=== PATIENT | male | born 1975 | race Two or more races ===

== ENCOUNTER → 2021-01-03 | Outpatient (CLI) | payer BC ==
[~2021-01-03] MED LIST: IOPAMIDOL 76 % (ISOVUE-370) 100ML BTL IV ONE
[2021-01-03 14:25] VITALS: BP 127/76
[2021-01-03 14:50] VITALS: BP 123/73
== END | disposition home or self-care (01) ==
LOC: Rad HDHVI 14:13
PROVIDERS: ATTEND Internal Medicine Cardiovascular Disease
DX: I70.0 Atherosclerosis of aorta (principal); M47.814 Spondylosis without myelopathy or radiculopathy, thoracic region; R06.02 Shortness of breath
CPT/HCPCS: 71275; G0463; Q9967

== ENCOUNTER → 2021-01-12 | Outpatient (CLI) | payer BC | END | disposition home or self-care (01) | LOC: Rad HDHVI 14:17 | PROVIDERS: ATTEND Internal Medicine Cardiovascular Disease | DX: R07.89 Other chest pain (principal); E78.5 Hyperlipidemia, unspecified | CPT/HCPCS: 93306 ==

== ENCOUNTER → 2021-01-26 | Outpatient (CLI) | payer BC | END | disposition home or self-care (01) | LOC: Rad HDHVI 14:05 | PROVIDERS: ATTEND Internal Medicine Cardiovascular Disease | DX: I10 Essential (primary) hypertension (principal); I26.99 Other pulmonary embolism without acute cor pulmonale; R07.89 Other chest pain; E11.42 Type 2 diabetes mellitus with diabetic polyneuropathy; E78.5 Hyperlipidemia, unspecified; Z82.49 Family history of ischemic heart disease and other diseases of the circulatory system | CPT/HCPCS: 78452; 93017; 96374; A9500 ==

== ENCOUNTER 2024-11-12 16:16 | Inpatient (IN) | payer BC ==
[~2024-11-12] VITALS: Ht 167.6 cm; Wt 94.4 kg
--- NOTE | 2024-11-12 16:41 | ED.PDOC ---
GI ASSESSMENT HPI Comments 49 year old male presents to the ED with chief complaint of abdominal pain. Patient reports that he has been experiencing LLQ and RLQ abdominal pain with associated constipation and blood in stools for the past 2 days. Patient relays that 2 days ago, he had underwent a colonoscopy where a large polyp had been removed. Patient states he called the doctor who performed his colonoscopy, Dr. Campbell, today regarding his symptoms and was advised to come into the ED for further evaluation if his symptoms continued. Patient denies any N/V/D, dizziness, fever, chills, hematemesis, melena, or chest pain. Time Seen by MD: 16:37 Reviewed Notes: Nurses Notes, Medications, Allergies Allergies: Coded Allergies: NO KNOWN ALLERGIES (Unverified , 11/12/24) Information Source: Patient Mode of Arrival: Ambulatory Timing: Days Duration: Since onset Prehospital treatment: None Quality: Aching Vomitus: None Stool: Impaction, Blood Streaked Severity: Moderate Recent: None Recent Hx of: None Pain Location: RLQ, LLQ Modifying Factors: Nothing Associated sign and symptoms: Constipation, Abdominal Pain, Blood in Stool Past Medical History PAST MEDICAL HISTORY: Denies Surgical History (Other): Colonoscopy Family History Family History: Reviewed,noncontributory to illness Social History Smoker: Non-Smoker Alcohol: Denies ETOH Use Drugs: Denies Drug Use Lives In: Home Constitutional: denies: chills, diaphoresis, fatigue, fever, malaise, sweats, weakness, others EENTM: denies: blurred vision, double vision, ear bleeding, ear discharge, ear drainage, ear pain, ear ringing, eye pain, eye redness, hearing loss, mouth pain, mouth swelling, nasal discharge, nose bleeding, nose congestion, nose pain, photophobia, tearing, throat pain, throat swelling, voice changes, others Respiratory: denies: cough, hemoptysis, orthopnea, SOB at rest, shortness of breath, SOB with excertion, stridor, wheezing, others Cardiovascular: denies: chest pain, dizzy spells, diaphoresis, Dyspnea on exertion, edema, irregular heart beat, left arm pain, lightheadedness, palpitations, PND, syncope, others Gastrointestinal: reports: abdominal pain, blood streaked bowels, constipated; denies: abdomen distended, diarrhea, dysphagia, difficulty swallowing, hematemesis, melena, nausea, poor appetite, poor fluid intake, rectal bleeding, rectal pain, vomiting, others Genitourinary: denies: burning, dysuria, flank pain, frequency, hematuria, incontinence, penile discharge, penile sore, pain, testicle pain, testicle swelling, urgency, others Neurological: denies: dizziness, fainting, headache, left sided numbness, left sided weakness, numbness, paresthesia, pre-existing deficit, right sided numbness, right sided weakness, seizure, speech problems, tingling, tremors, weakness, others Musculoskeletal: denies: back pain, gout, joint pain, joint swelling, muscle pain, muscle stiffness, neck pain, others Integumetry: denies: bruises, change in color, change in hair/nails, dryness, laceration, lesions, lumps, rash, wounds, others Allergic/Immunocompromised: denies: Difficulty Healing, Frequent Infections, Hives, Itching, others Hematologic/Lymphatic: denies: anemia, blood clots, easy bleeding, easy bruising, swollen glands, others Endocrine: denies: excessive hunger, excessive sweating, excessive thirst, excessive urination, flushing, intolerance to cold, intolerance to heat, unexplained weight gain, unexplained weight loss, others Psychiatric: denies: anxiety, bipolar disorder, depression, hopeless, panic disorder, schizophrenia, sleepless, suicidal, others All Other Systems: Reviewed and Negative Physical Exam General Appearance: No Apparent Distress, Normal HEENT: Normal ENT Inspection, PERRL/EOMI Neck: Full Range of Motion, Non-Tender, Normal, Normal Inspection Respiratory: Chest Non-Tender, Lungs Clear, No Accessory Muscle Use, No Respiratory Distress, Normal Breath Sounds Cardiovascular: No Edema, No JVD, No Murmur, No Gallop, Normal Peripheral Pulses, Regular Rate/Rhythm Breast Exam: Deferred Gastrointestinal: LLQ, No Organomegaly, No Pulsatile Mass, Normal Bowel Sounds, RLQ, Soft, Tenderness (RLQ and LLQ tenderness) Genitalia: Deferred Pelvic: Deferred Rectal: Deferred Extremities: No calf tenderness, Normal capillary refill, Normal inspection, Normal range of motion, Non-tender, No pedal edema Musculoskeletal : Apperance: Normal Neurologic: Alert, purification operator helper II-XII nml as Tested, No Motor Deficits, Normal Affect, Normal Mood, No Sensory Deficits Cerebellar Function: Normal Reflexes: Normal Skin: Dry, Normal Color, Warm Lymphatic: No Adenopathy Was a procedure done? Was a procedure done?: No GI differential Dx Differential Diagnosis: Bowel Obstruction, Cholecystitis, Constipation, Diverticular disease X-Ray, Labs, Meds, VS Vital Signs Date Time Temp Pulse Resp B/P (MAP) Pulse Ox O2 Delivery O2 Flow Rate FiO2 11/12/24 18:02 96 17 100 Room Air 11/12/24 18:02 98.5 96 17 164/80 (108) 100 98.5 11/12/24 16:42 98.1 95 16 125/83 (97) 97 Lab Test 11/12/24 17:48 11/12/24 17:46 Range/Units Urine Color Light-yellow Yellow Urine Clarity Clear Clear Urine pH 6.5 5.0-9.0 Urine Specific [place] 1.019 1.001-1.035 Urine Protein Negative Negative Urine Ketones Negative Negative Urine Blood 1+ H Negative /uL Urine Nitrite Negative Negative Urine Bilirubin Negative Negative Urine Urobilinogen Normal Negative mg/dL Urine Leukocyte Esterase Negative Negative /uL Urine RBC 9 0 - 3 /hpf Urine Microscopic WBC < 1 0-3 /HPF Urine Squamous Epithelial Cells None seen <5 /hpf Urine Bacteria None seen None Seen /hpf Urine Mucus Few None Seen Urine Glucose Normal Normal mg/dL White Blood Count 10.7 4.4-10.8 10^3/uL Red Blood Count 4.72 4.5-5.90 10^6/uL Hemoglobin 13.6 13.5-17.5 g/dL Hematocrit 40.3 L 41.0-53.0 % Mean Corpuscular Volume 85.4 80.0-100.0 fL Mean Corpuscular Hemoglobin 28.8 28.0-32.0 pg Mean Corpuscular Hemoglobin Concent 33.8 32.0-36.0 g/dL Red Cell Distribution Width 18.6 H 11.8-14.3 % Platelet Count 207 140-450 10^3/uL Mean Platelet Volume 8.6 6.9-10.8 fL Neutrophils (%) (Auto) 85.3 H 37.0-80.0 % Lymphocytes (%) (Auto) 8.8 L 10.0-50.0 % Monocytes (%) (Auto) 5.3 0.0-12.0 % Eosinophils (%) (Auto) 0.0 0.0-7.0 % Basophils (%) (Auto) 0.6 0.0-2.0 % Neutrophils # (Auto) 9.1 H 1.6-8.6 10 ^3/uL Lymphocytes # (Auto) 0.9 0.4-5.4 10 ^3/uL Monocytes # (Auto) 0.6 0-1.3 10 ^3/uL Eosinophils # (Auto) 0 0-0.8 10 ^3/uL Basophils # (Auto) 0.1 0-0.2 10 ^3/uL Nucleated Red Blood Cells 0.0 % Sodium Level 138 136-145 mmol/L Potassium Level 3.7 3.5-5.1 mmol/L Chloride Level 102 98-107 mmol/L Carbon Dioxide Level 28 20-31 mmol/L Anion Gap 8 5-15 Blood Urea Nitrogen 11 9-23 mg/dL Creatinine 0.90 0.700-1.30 mg/dL Glomerular Filtration Rate Calc 105 >90 mL/min BUN/Creatinine Ratio 12.2 10.0-20.0 Serum Glucose 103 74-106 mg/dL Calcium Level 9.9 8.7-10.4 mg/dL Total Bilirubin 0.8 0.2-1.0 mg/dL Aspartate Amino Transferase (AST) 23 13-40 U/L Alanine Aminotransferase (ALT) 46 H 7-40 U/L Alkaline Phosphatase 74 46-116 U/L Total Protein 7.2 5.7-8.2 g/dL Albumin 5.1 H 3.2-4.8 g/dL Current Medications Medications (Trade) Dose Ordered Sig/Wyatt Route Start Time Stop Time Status Last Admin Piperacillin Sod/ Tazobactam Sod 100 ml @ 100 mls/hr ONCE ONCE IV 11/12/24 18:00 11/12/24 18:59 11/12/24 18:14 Ketorolac Tromethamine (Toradol Injection) 30 mg ONCE ONCE IV 11/12/24 18:00 11/12/24 18:01 DC 11/12/24 18:14 X-Ray, Labs, Meds, VS Comment CT abdomen and pelvis: IMPRESSION: 1. Acute complicated diverticulitis of the mid sigmoid colon with a small extraluminal tract /pocket of gas and fluid adjacent to the inflamed segment coursing to an adjacent small bowel loop. This could be a small abscess, though developing fistulous tract is a possibility 2. At least mild calcified coronary artery disease partially imaged. 3. Mild prostatomegaly. Patient will be admitted for complicated diverticulitis To be started on Zosyn Recommend GI consult Time of 1ST Reevaluation: 17:37 Reevaluation 1ST: Unchanged Patient Education/Counseling: Diagnosis, Treatment Family Education/Counseling: No Family Present Departure 1 Departure Time of Disposition: 18:46 Impression: Primary Impression: Diverticulitis of intestine Qualified Codes: K57.21 - Diverticulitis of large intestine with perforation and abscess with bleeding Disposition: ADMITTED INPATIENT Condition: Stable Critical Care Note Critical Care Time?: No Stability Stability form required: No Heart Score Heart Score: Heart Score Response (Comments) Value History N/A 0 EKG N/A 0 Age N/A 0 Risk Factors N/A 0 Troponin N/A 0 Total 0 I personally scribed for SEBAS BA ([email or web address]) on 11/12/24 at 16:41. Electronically submitted by Demian Dash ([email or web address]). SEBAS BA Nov 12, 2024 16:41
--- NOTE | 2024-11-12 17:27 | DVH ---
CLINICAL HISTORY: abd pain TECHNIQUE: CT of the abdomen and pelvis was performed without intravenous contrast. This exam was per formed according to our departmental dose optimization program. Up-to-date CT equipment and radiation dose reduction techniques are utilized as appropriate. [[employer] Exposure Report] CTDI: 20.25 DLP: 1064.7 WID: COMPARISON: None FINDINGS: Lower Thorax: Normal-sized heart with trace pericardial fluid. At least mild coronary artery calcific ations. Lung bases are clear. Liver and Biliary system: Unremarkable. Spleen: Unremarkable. Adrenal Glands and Kidneys: Unremarkable. Pancreas and Retroperitoneum: Unremarkable. Aorta and Major Vessels: Aortoiliac vessels are normal in caliber with mild calcified atherosclerotic plaque. Bowel, Mesentery and Peritoneal space: The small and large bowel loops are normal in caliber. There i s a segment of pericolonic soft tissue stranding in the mid sigmoid colon. There is a tract of extra luminal gas and fluid from the anterior/ superior mid sigmoid colon, contiguous with an adjacent smal l bowel loop ( series 601, image 35 and series 2, image 66 ). Normal appendix. No generalized free in traperitoneal air Pelvis: Mild prostatomegaly. Urinary bladder is mildly distended. There is calcification of the bila teral vas deferens. No pelvic lymphadenopathy. Abdominal wall and Osseous Structures: Small fat containing left inguinal hernia. Mild multilevel low er thoracic and lumbar spondylosis. No destructive osseous lesion. IMPRESSION: 1. Acute complicated diverticulitis of the mid sigmoid colon with a small extraluminal tract /pocket of gas and fluid adjacent to the inflamed segment coursing to an adjacent small bowel loop. This cou ld be a small abscess, though developing fistulous tract is a possibility 2. At least mild calcified coronary artery disease partially imaged. 3. Mild prostatomegaly.
[2024-11-12 17:59] LABS: Basophils # (auto) 0.1 10 ^3/uL (0-0.2); Basophils % (auto) 0.6 % (0.0-2.0); Eosinophils # (auto) 0 10 ^3/uL (0-0.8); Hematocrit 40.3 % (41.0-53.0); Hemoglobin 13.6 g/dL (13.5-17.5); Lymphocytes # (auto) 0.9 10 ^3/uL (0.4-5.4); Lymphocytes % (auto) 8.8 % (10.0-50.0); Mean Corpuscular Hemoglobin 28.8 pg (28.0-32.0); Mean Corpuscular Hgb Conc. 33.8 g/dL (32.0-36.0); Mean Corpuscular Volume 85.4 fL (80.0-100.0); Monocytes # (auto) 0.6 10 ^3/uL (0-1.3); Monocytes % (auto) 5.3 % (0.0-12.0); Neutrophils # (auto) 9.1 10 ^3/uL (1.6-8.6); Neutrophils % (auto) 85.3 % (37.0-80.0); Platelet Count (auto) 207 10^3/uL (140-450); Red Blood Cells 4.72 10^6/uL (4.5-5.90); Red Cell Distribution Width 18.6 % (11.8-14.3); White Blood Cell 10.7 10^3/uL (4.4-10.8)
[2024-11-12 18:08] LABS: Urine Bacteria None Seen /hpf (None Seen)
[2024-11-12] MEDS: KETOROLAC TROMETH 30 MG/ML 1ML VIAL IV ONE (18:14)
[2024-11-12] MEDS: PIPERACILLIN-TAZOB 3.375GM 100 ML IV ONE (18:14)
[2024-11-12 18:15] LABS: Alkaline Phosphatase 74 U/L (46-116); Anion Gap 8 (5-15); Aspartate Aminotransferase 23 U/L (13-40); BUN/Creatinine Ratio 12.2 (10.0-20.0); Bilirubin, Total 0.8 mg/dL (0.2-1.0); Blood Urea Nitrogen 11 mg/dL (9-23); Calcium 9.9 mg/dL (8.7-10.4); Carbon Dioxide 28 mmol/L (20-31); Chloride 102 mmol/L (98-107); Glucose 103 mg/dL (74-106); Potassium 3.7 mmol/L (3.5-5.1); Sodium 138 mmol/L (136-145); Total Protein 7.2 g/dL (5.7-8.2)
[2024-11-12 18:32] LABS: Urine Blood 1+ /uL (Negative); Urine Clarity Clear (Clear); Urine Color Light-Yellow (Yellow); Urine Mucus FEW (None Seen); Urine Protein, UAD Negative (Negative); Urine Specific Gravity 1.019 (1.001-1.035); Urine Squamous Epithelial Cell None Seen /hpf (<5); Urine Urobilinogen Normal (Negative); Urine WBC < 1 /HPF (0-3); Urine pH 6.5 (5.0-9.0)
[2024-11-12 18:33] LABS: Alanine Aminotransferase 46 U/L (7-40); Albumin 5.1 g/dL (3.2-4.8)
[2024-11-12] MEDS ORDERED: ACETAMINOPHEN 325 MG TAB PO PRN (22:30)
[2024-11-12] MEDS: SODIUM CHLORIDE 0.9% 1,000 ML IV SCH (22:30)
[2024-11-12 22:55] VITALS: O2SAT 95
--- NOTE | 2024-11-12 23:19 | DVHHPRES ---
History of Present Illness Resident Creating Document: HOLLIE MERAZ RESIDENT History of Present Illness Is a 49-year-old male with past medical history of diverticulosis, prediabetes, dyslipidemia, who came in due to abdominal pain. According to the patient he underwent a colonoscopy on 11/10/2024 with the removal of a sigmoid polyp. Today on 11/12/2024 in the morning he started experiencing a generalized abdominal pain, constant, sharp, cramping, 9/10 in intensity. Bending over relieves the pain slightly. Denies having similar symptoms in the past. Abdominal pain is accompanied with diarrhea and hematochezia. CT abdomen pelvis showed acute complicated diverticulitis of the midsigmoid colon with a small extraluminal tract/pocket of gas and fluid adjacent to the inflamed segment coursing to an adjacent small bowel loop. This could be a small abscess, though developing fistulous track is a possibility. Past Medical History diverticulosis, prediabetes, dyslipidemia Past Surgical History Hernia repair surgery Smoke: No ALCOHOL: none Drugs: Marijuana Lives: with Family Review of Systems Constitutional: Yes: Fever, Chills, Malaise; No: Sweats, Weakness, Other Eyes: No: Pain, Vision change, Conjunctivae inflammation, Eyelid inflammation, Other, Redness ENT: No: Ear pain, Ear discharge, Nose pain, Nose discharge, Nose congestion, Mouth pain, Mouth swelling, Throat pain, Throat swelling, Other Respiratory: No: Cough, Dry, Shortness of breath, SOB with excertion, Wheezing, Hemoptysis, Pleuritic Pain, Sputum, Wheezing, Other Gastrointestinal: Nausea, Vomiting, Diarrhea, Hematochezia; No: Abdominal Pain, Constipation, Melena, Other Genitourinary: No Dysuria, No Frequency, No Incontinence, No Hematuria, No Retention, No Other Musculoskeletal: No: other, neck pain, shoulder pain, arm pain, back pain, hand pain, leg pain, foot pain Skin: No: Rash, Lesions, Jaundice, Bruising, Other Neurological: No: Weakness, Numbness, Incoordination, Change in speech, Confusion, Seizures, Other Allergies: Coded Allergies: NO KNOWN ALLERGIES (Unverified , 11/12/24) Medications Current Medications Medications Dose Ordered Sig/Wyatt Route Start Time Stop Time Status Last Admin Dose Admin Acetaminophen 650 mg Q6HP PRN PO 11/12/24 22:30 Ceftriaxone Sodium 50 ml @ 100 mls/hr DAILY@2300 IV 11/13/24 23:00 Metronidazole 100 ml @ 100 mls/hr Q8HR IV 11/13/24 06:00 Sodium Chloride 1,000 ml @ 125 mls/hr Q8H IV 11/12/24 22:30 Pantoprazole Sodium 40 mg DAILY IV 11/13/24 10:00 Exam Vital Signs Vital Signs Date Time Temp Pulse Resp B/P (MAP) Pulse Ox O2 Delivery O2 Flow Rate FiO2 11/12/24 22:59 98.7 98 12 141/83 (102) 98 98.7 11/12/24 18:02 Room Air General Appearance: Alert, Oriented X3, Cooperative, mild distress HEENT: Atraumatic, PERRLA, EOMI Respiratory: Clear to auscultation, Normal air movement Cardiovascular: Regular rate, Normal S1, Normal S2 Abdominal: Other (Slightly decreased bowel sounds, generalized lower abdominal tenderness to palpation) Extremities: No clubbing, No cyanosis, No edema Skin: No rashes, No significant lesion Neuro: Normal speech, Strength at 5/5 X4 ext, Sensation intact Psych/Mental Status: Mental status NL, Mood NL Labs/Xrays Labs Test 11/12/24 17:48 11/12/24 17:46 Range/Units Urine Color Light-yellow Yellow Urine Clarity Clear Clear Urine pH 6.5 5.0-9.0 Urine Specific [place] 1.019 1.001-1.035 Urine Protein Negative Negative Urine Ketones Negative Negative Urine Blood 1+ H Negative /uL Urine Nitrite Negative Negative Urine Bilirubin Negative Negative Urine Urobilinogen Normal Negative mg/dL Urine Leukocyte Esterase Negative Negative /uL Urine RBC 9 0 - 3 /hpf Urine Microscopic WBC < 1 0-3 /HPF Urine Squamous Epithelial Cells None seen <5 /hpf Urine Bacteria None seen None Seen /hpf Urine Mucus Few None Seen Urine Glucose Normal Normal mg/dL White Blood Count 10.7 4.4-10.8 10^3/uL Red Blood Count 4.72 4.5-5.90 10^6/uL Hemoglobin 13.6 13.5-17.5 g/dL Hematocrit 40.3 L 41.0-53.0 % Mean Corpuscular Volume 85.4 80.0-100.0 fL Mean Corpuscular Hemoglobin 28.8 28.0-32.0 pg Mean Corpuscular Hemoglobin Concent 33.8 32.0-36.0 g/dL Red Cell Distribution Width 18.6 H 11.8-14.3 % Platelet Count 207 140-450 10^3/uL Mean Platelet Volume 8.6 6.9-10.8 fL Neutrophils (%) (Auto) 85.3 H 37.0-80.0 % Lymphocytes (%) (Auto) 8.8 L 10.0-50.0 % Monocytes (%) (Auto) 5.3 0.0-12.0 % Eosinophils (%) (Auto) 0.0 0.0-7.0 % Basophils (%) (Auto) 0.6 0.0-2.0 % Neutrophils # (Auto) 9.1 H 1.6-8.6 10 ^3/uL Lymphocytes # (Auto) 0.9 0.4-5.4 10 ^3/uL Monocytes # (Auto) 0.6 0-1.3 10 ^3/uL Eosinophils # (Auto) 0 0-0.8 10 ^3/uL Basophils # (Auto) 0.1 0-0.2 10 ^3/uL Nucleated Red Blood Cells 0.0 % Sodium Level 138 136-145 mmol/L Potassium Level 3.7 3.5-5.1 mmol/L Chloride Level 102 98-107 mmol/L Carbon Dioxide Level 28 20-31 mmol/L Anion Gap 8 5-15 Blood Urea Nitrogen 11 9-23 mg/dL Creatinine 0.90 0.700-1.30 mg/dL Glomerular Filtration Rate Calc 105 >90 mL/min BUN/Creatinine Ratio 12.2 10.0-20.0 Serum Glucose 103 74-106 mg/dL Calcium Level 9.9 8.7-10.4 mg/dL Total Bilirubin 0.8 0.2-1.0 mg/dL Aspartate Amino Transferase (AST) 23 13-40 U/L Alanine Aminotransferase (ALT) 46 H 7-40 U/L Alkaline Phosphatase 74 46-116 U/L Total Protein 7.2 5.7-8.2 g/dL Albumin 5.1 H 3.2-4.8 g/dL Assessment/Plan Assessment/Plan Acute complicated diverticulitis Questionable abscess vs colonic fistulous tract? Hemorrhoids, 4th degree - s/p colonoscopy on 11/10/24 which showed polyp of the colon, diverticulosis of intestine without perforation or abscess without bleeding, 4th degree hemorrhoids - CT abdomen pelvis: Acute complicated diverticulitis of the mid sigmoid colon with a small extraluminal tract /pocket of gas and fluid adjacent to the inflamed segment coursing to an adjacent small bowel loop. This could be a small abscess, though developing fistulous tract is a possibility. At least mild calcified coronary artery disease partially imaged. Mild prostatomegaly. - IV ceftriaxone, IV metronidazole - IV NS at 125 cc/hour - acetaminophen 650 mg as needed - NPO - GI gastro group consulted - surgery consulted History of GERD History of BPH - IV Protonix 40 mg daily - currently holding home medication tamsulosin Prediabetes, Hb A1c 6% - counseled on healthy lifestyle and dietary modifications - monitor Goals of care: Full code, discussed for >16 minutes on 11/12/24 Plan discussed with patient Plan discussed with Dr. Singh Plan discussed with: Patient, Other (RN) My Orders Orders - HOLLIE MERAZ RESIDENT Procedure Category Date Status Time Admit ADMIT 11/12/24 Transmitted 22:29 Code Status CODE 11/12/24 Transmitted 22:29 Vital Signs EMILY 11/12/24 In Process 22:29 Review Orders With EMILY 11/12/24 In Process Adm.Md 22:29 Acetaminophen Tablet PHA 11/12/24 In Process (Tylenol Tablet) 22:30 Notify Md Of Changes EMILY 11/12/24 In Process From Base 22:29 Advance Directive EMILY 11/12/24 In Process 22:29 Patient Condition ORDERS 11/12/24 Transmitted 22:29 Allergies EMILY 11/12/24 In Process 22:29 Notify Md Of Changes EMILY 11/12/24 In Process From Base 22:29 Npo (Nothing By DIET 11/13/24 Transmitted Mouth) Diet Breakfast *Gi Gastro Group CONS 11/12/24 Transmitted 22:24 * Surgical Consult CONS 11/12/24 Transmitted Ceftriaxone 1gm/50ml PHA 11/13/24 In Process D5w (Rocephin) 23:00 Metronidazole PHA 11/13/24 In Process 500mg/100ml (Flagyl 06:00 Metronidazole PHA 11/12/24 In Process 500mg/100ml (Flagyl 22:30 Sodium Chloride 0.9% PHA 11/12/24 In Process 22:30 Pantoprazole PHA 11/13/24 In Process (Protonix) 10:00 Date of Service: Nov 12, 2024 Billing Provider: STEPHANIE SINGH MD Common Visit Codes: 89998-[id number] INP/OBS CARE (HIGH) [facility] Nov 12, 2024 23:19 STEPHANIE SINGH MD Nov 13, 2024 23:13
[2024-11-12] MEDS: cefTRIAXone 1GM/50ML D5W 50 ML IV ONE (23:24)
[2024-11-13] MEDS: metroNIDAZOLE 500MG/100ML 100 ML IV ONE (00:37)
[2024-11-13 01:00] VITALS: BP 120/80; PULSE 91; RESP 20; TEMP 98.8; O2SAT 98
[2024-11-13] MEDS: metroNIDAZOLE 500MG/100ML 100 ML IV SCH (05:29)
[2024-11-13 07:24] LABS: Basophils # (auto) 0 10 ^3/uL (0-0.2); Basophils % (auto) 0.2 % (0.0-2.0); Eosinophils # (auto) 0 10 ^3/uL (0-0.8); Eosinophils % (auto) 0.3 % (0.0-7.0); Hematocrit 36.5 % (41.0-53.0); Hemoglobin 12.3 g/dL (13.5-17.5); Lymphocytes # (auto) 0.9 10 ^3/uL (0.4-5.4); Lymphocytes % (auto) 10.1 % (10.0-50.0); Mean Corpuscular Hemoglobin 28.6 pg (28.0-32.0); Mean Corpuscular Hgb Conc. 33.7 g/dL (32.0-36.0); Mean Corpuscular Volume 84.9 fL (80.0-100.0); Monocytes # (auto) 0.6 10 ^3/uL (0-1.3); Monocytes % (auto) 6.3 % (0.0-12.0); Neutrophils # (auto) 7.4 10 ^3/uL (1.6-8.6); Neutrophils % (auto) 83.1 % (37.0-80.0); Platelet Count (auto) 196 10^3/uL (140-450); Red Cell Distribution Width 18.4 % (11.8-14.3); White Blood Cell 8.9 10^3/uL (4.4-10.8)
[2024-11-13 08:45] VITALS: BP 115/76; PULSE 86; RESP 20; TEMP 98.4; O2SAT 97
[2024-11-13] MEDS: ACETAMINOPHEN IV 1000 MG/100ML (10MG/ML) IV ONE (08:48)
[2024-11-13] MEDS: PANTOPRAZOLE 40 MG/10 ML VIAL INJ IV SCH (08:50)
[2024-11-13] MEDS: MORPHINE SULFATE INJ 2 MG/ml SYRG IV PRN (11:26)
--- NOTE | 2024-11-13 12:13 | DVHINCON2 ---
Date of service: Nov 13, 2024 History of Present Illness 49-year-old male status post colonoscopy three days ago who began to experience suprapubic abdominal pain starting yesterday. Patient reports that he was told that a large polyp was removed during the colonoscopy. Patient reports some low-grade fever with without nausea or vomiting. Past Medical History Hypercholesterolemia Past Surgical History Ventral hernia repair and left inguinal hernia repair Family History: Hypercholesterolemia G8 FATHER Family History Noncontributory Social History Denies alcohol, tobacco, IV drug use Allergies: Coded Allergies: NO KNOWN ALLERGIES (Unverified , 11/12/24) Current Medications Current Medications Medications (Trade) Dose Ordered Sig/Wyatt Route PRN Reason Start Time Stop Time Status Last Admin Acetaminophen (Tylenol Tablet) 650 mg Q6HP PRN PO PAIN SCALE 1-3 OR TEMP>100.4 11/12/24 22:30 11/13/24 08:06 DC Ceftriaxone Sodium 50 ml @ 100 mls/hr DAILY@2300 IV 11/13/24 23:00 Metronidazole 100 ml @ 100 mls/hr Q8HR IV 11/13/24 06:00 11/13/24 05:29 Sodium Chloride 1,000 ml @ 125 mls/hr Q8H IV 11/12/24 22:30 11/13/24 10:13 Pantoprazole Sodium (Protonix) 40 mg DAILY IV 11/13/24 10:00 11/13/24 08:50 Morphine Sulfate 2 mg Q4HPRN PRN IV SEVERE PAIN (7-10 PAIN SCALE) 11/13/24 11:00 11/13/24 11:26 Vital Signs Vital Signs Date Time Temp Pulse Resp B/P (MAP) Pulse Ox O2 Delivery O2 Flow Rate FiO2 11/13/24 11:26 80 18 125/78 11/13/24 08:45 98.4 97 98.4 11/13/24 08:00 Room Air* 0 21 Physical Exam GEN: Well-developed male in no acute distress. Alert. HEENT: Normocephalic atraumatic. Moist mucous membranes. Anicteric sclerae. CV: RRR Respiratory: CTAB ABD: Slightly obese abdomen with suprapubic tenderness to palpation with minimal guarding. Nondistended. CT of the abdomen and pelvis: Acute complicated diverticulitis of the mid sigmoid colon with small extraluminal pocket of gas and fluid adjacent to the inflamed segment. Labs/Diagnostic Data Labs Test 11/13/24 08:13 11/13/24 06:54 11/12/24 17:48 11/12/24 17:46 Range/Units Lactic Acid Level 0.9 0.4-2.0 mmol/L White Blood Count 8.9 4.4-10.8 10^3/uL Red Blood Count 4.30 L 4.5-5.90 10^6/uL Hemoglobin 12.3 L 13.5-17.5 g/dL Hematocrit 36.5 L 41.0-53.0 % Mean Corpuscular Volume 84.9 80.0-100.0 fL Mean Corpuscular Hemoglobin 28.6 28.0-32.0 pg Mean Corpuscular Hemoglobin Concent 33.7 32.0-36.0 g/dL Red Cell Distribution Width 18.4 H 11.8-14.3 % Platelet Count 196 140-450 10^3/uL Mean Platelet Volume 8.2 6.9-10.8 fL Neutrophils (%) (Auto) 83.1 H 37.0-80.0 % Lymphocytes (%) (Auto) 10.1 10.0-50.0 % Monocytes (%) (Auto) 6.3 0.0-12.0 % Eosinophils (%) (Auto) 0.3 0.0-7.0 % Basophils (%) (Auto) 0.2 0.0-2.0 % Neutrophils # (Auto) 7.4 1.6-8.6 10 ^3/uL Lymphocytes # (Auto) 0.9 0.4-5.4 10 ^3/uL Monocytes # (Auto) 0.6 0-1.3 10 ^3/uL Eosinophils # (Auto) 0 0-0.8 10 ^3/uL Basophils # (Auto) 0 0-0.2 10 ^3/uL Nucleated Red Blood Cells 0.0 % Urine Color Light-yellow Yellow Urine Clarity Clear Clear Urine pH 6.5 5.0-9.0 Urine Specific [place] 1.019 1.001-1.035 Urine Protein Negative Negative Urine Ketones Negative Negative Urine Blood 1+ H Negative /uL Urine Nitrite Negative Negative Urine Bilirubin Negative Negative Urine Urobilinogen Normal Negative mg/dL Urine Leukocyte Esterase Negative Negative /uL Urine RBC 9 0 - 3 /hpf Urine Microscopic WBC < 1 0-3 /HPF Urine Squamous Epithelial Cells None seen <5 /hpf Urine Bacteria None seen None Seen /hpf Urine Mucus Few None Seen Urine Glucose Normal Normal mg/dL Sodium Level 138 136-145 mmol/L Potassium Level 3.7 3.5-5.1 mmol/L Chloride Level 102 98-107 mmol/L Carbon Dioxide Level 28 20-31 mmol/L Anion Gap 8 5-15 Blood Urea Nitrogen 11 9-23 mg/dL Creatinine 0.90 0.700-1.30 mg/dL Glomerular Filtration Rate Calc 105 >90 mL/min BUN/Creatinine Ratio 12.2 10.0-20.0 Serum Glucose 103 74-106 mg/dL Hemoglobin A1c 6.0 H <5.7 % A1C Calcium Level 9.9 8.7-10.4 mg/dL Total Bilirubin 0.8 0.2-1.0 mg/dL Aspartate Amino Transferase (AST) 23 13-40 U/L Alanine Aminotransferase (ALT) 46 H 7-40 U/L Alkaline Phosphatase 74 46-116 U/L Total Protein 7.2 5.7-8.2 g/dL Albumin 5.1 H 3.2-4.8 g/dL Assessment 1. Small colonic perforation secondary to diverticulitis versus iatrogenic from colonoscopy clinically stable Plan/Recommendation 1. Patient is clinically stable. Recommend continuing with conservative treatment with NPO status and in broad-spectrum IV antibiotics. If he is stable tomorrow we will consider possible starting clear liquid diet. Plan discussed with: Patient KASSANDRA BUNDY MD Nov 13, 2024 12:13
[2024-11-13 12:30] VITALS: BP 125/78; PULSE 80; RESP 20; TEMP 98; O2SAT 97
[2024-11-13 16:30] VITALS: BP 129/75; PULSE 89; RESP 19; TEMP 98.9; O2SAT 96
--- NOTE | 2024-11-13 18:04 | DVHPNRES ---
Progress Note Date Seen: Nov 13, 2024 Resident Creating Document: ALFONSO AGUILAR Medical Necessity Reason Pt with a Central, PICC or Fol: No Medical Necessity Reason Abdominal pain Subjective Review of Systems This is a 49-year-old male with past medical history of diverticulosis, prediabetes, dyslipidemia, who came in due to abdominal pain. According to the patient he underwent a colonoscopy on 11/10/2024 with the removal of a sigmoid polyp. On 11/12/2024 in the morning, he started experiencing a generalized abdominal pain, constant, sharp, cramping, 9/10 in intensity. Bending over relieves the pain slightly. Denies having similar symptoms in the past. Abdominal pain is accompanied with diarrhea and hematochezia. He denies chest pain, palpitations, nausea and vomiting. vitals temperature 98.7 pulse 98, respiratory 12 blood pressure 141/13. WBC10.7--> 8.9, hb: 13.60--> 12.3. CT abdomen pelvis showed acute complicated diverticulitis of the midsigmoid colon with a small extraluminal tract/pocket of gas and fluid adjacent to the inflamed segment coursing to an adjacent small bowel loop. This could be a small abscess, though developing fistulous track is a possibility. Constitutional: Denies fever no chills no feeling of malaise HEENT: Denies headache, ear pain, ear discharges, conjunctivitis, nasal discharge throat pain Cardiovascular: Denies chest pain, palpitation, orthopnea, PND, or pedal edema Respiratory: Denies shortness of breath, cough cough, sputum production, hemoptysis, GI: As stated in the HPI : Denies frequency, urgency, hematuria, Endocrine: Denies unintentional weight gain or weight loss, feeling of hot flashes, Bam: Denies easy bruising, bleeding disorders, epistaxis Musculoskeletal: Denies joint pains, muscle aches Psych: No evidence of depression, raiza, suicidal ideation Objective vital signs Vital Sign Date Time Temp Pulse Resp B/P (MAP) Pulse Ox O2 Delivery O2 Flow Rate FiO2 11/13/24 17:09 89 18 129/75 11/13/24 16:30 98.9 96 98.9 11/13/24 08:00 Room Air* 0 21 Total Intake and Output 11/12/24 11/12/24 11/13/24 15:00 23:00 07:00 Intake Total 100 ml Balance 100 ml medications Current Medications Medications Dose Ordered Sig/Wyatt Route Start Time Stop Time Status Last Admin Dose Admin Ceftriaxone Sodium 50 ml @ 100 mls/hr DAILY@2300 IV 11/13/24 23:00 Metronidazole 100 ml @ 100 mls/hr Q8HR IV 11/13/24 06:00 11/13/24 14:24 100 MLS/HR Sodium Chloride 1,000 ml @ 125 mls/hr Q8H IV 11/12/24 22:30 11/13/24 10:13 125 MLS/HR Pantoprazole Sodium 40 mg DAILY IV 11/13/24 10:00 11/13/24 08:50 40 MG Morphine Sulfate 2 mg Q4HPRN PRN IV 11/13/24 11:00 11/13/24 17:09 2 MG Examination General Appearance: Alert, Oriented X3, Cooperative, No acute distress HEENT: Atraumatic, PERRLA, EOMI, Mucous membrane moist/pink Respiratory: Clear to auscultation, Normal air movement Cardiovascular: Regular rate, Normal S1, Normal S2, No murmurs, no chest wall tenderness Abdominal: Tenderness in the lower quadrant, but L> R, bowel sounds present, Extremities: No clubbing, No cyanosis, No edema, Normal pulses, No tenderness/swelling Skin: No rashes, No breakdown, No significant lesion Neuro: Normal gait, Normal speech, Strength at 5/5 X4 ext, Normal tone, Sensation intact, Cranial nerves 3-12 NL, Reflexes 2+ Psych/Mental Status: Mental status NL, Mood NL laboratory and microbiology Laboratory Tests 11/13/24 06:54 11/12/24 17:46 Test 11/12/24 17:46 Range/Units Serum Glucose 103 74-106 mg/dL Problem List/Assessment/Plan Problem List/Assessment/Plan ASSESSMENT Acute complicated Diverticulitis Questionable abscess vs colonic fistulous tract? Diverticulosis Obesity Prediabetes, Hb A1c 6% Recent history of colonoscopy BPH (Mild prostatomegaly) Hemorrhoids, 4th degree S/p colonoscopy on 11/10/24 which showed polyp of the colon, diverticulosis of intestine without perforation or abscess without bleeding, 4th degree hemorrhoids History of GERD Plan Patient is clinically stable. Keep NPO Continue IV antibiotics: IV ceftriaxone, IV metronidazole IV NS at 125 cc/hour morphine 2 mg q4hr prn protonix 40 mg daily Surgery following Closed status: Full code Case discussed for more than 35 minute Case and plan discussed and reviewed with Dr. Brady Plan discussed with: Patient, Other (family) Date of Service: Nov 13, 2024 Billing Provider: JUWAN BRADY MD Common Visit Codes: [id number] INP/OBS CARE(HIGH) ALFONSO AGUILAR RESIDENT Nov 13, 2024 18:04 JUWAN BRADY MD Nov 18, 2024 20:38
--- NOTE | 2024-11-13 18:18 | DVHINCON2 ---
GI Consult Consult Note Date of Consultation: November 13, 2024 Chief Complaint: Abnormal imaging colon, diverticulitis versus iatrogenic perforation Referring Physician: Elena H&P: The patient is a 49-year-old male recent colonoscopy November 10, admitted November 12 with abdominal pain, with history of sigmoid polypectomy polypectomy, admitted with abdominal pain, findings suspicious for diverticulitis versus iatrogenic perforation from the procedure. Patient placed on IV antibiotics. Currently NPO. Patient complains of bloating and abdominal pain, denies fevers or chills, is not passing gas or stool. Patient is currently NPO. He has no prior history of diverticulitis. Past Medical History: Hyperlipidemia Past Surgical History: Ventral hernia repair Social History: NO smoking, drinking ETOH and use of illegal drugs. Family History: No gastrointestinal diseases or malignancies Current Medications Medications (Trade) Dose Ordered Sig/Wyatt Route PRN Reason Start Time Stop Time Status Last Admin Acetaminophen (Tylenol Tablet) 650 mg Q6HP PRN PO PAIN SCALE 1-3 OR TEMP>100.4 11/12/24 22:30 11/13/24 08:06 DC Ceftriaxone Sodium 50 ml @ 100 mls/hr DAILY@2300 IV 11/13/24 23:00 Metronidazole 100 ml @ 100 mls/hr Q8HR IV 11/13/24 06:00 11/13/24 14:24 Sodium Chloride 1,000 ml @ 125 mls/hr Q8H IV 11/12/24 22:30 11/13/24 10:13 Pantoprazole Sodium (Protonix) 40 mg DAILY IV 11/13/24 10:00 11/13/24 08:50 Morphine Sulfate 2 mg Q4HPRN PRN IV SEVERE PAIN (7-10 PAIN SCALE) 11/13/24 11:00 11/13/24 17:09 Review of Systems: Constitutional: no fever, chill, weight loss HEENT: no eye pain, no hearing loss, no oral lesion, no scleral icterus Heart: no chest pain, no chest pressure Lung: no cough, no dyspnea with exertion Abdomen: see HPI : no pain with urination, normal appearing urine Musculoskeletal: no joint pain, no muscle pain Neurological: no seizure, no loss of sensation, no weakness in extremities Pysch: no depression, no anxiety Derm: no rash, no jaundice Vital Signs Date Time Temp Pulse Resp B/P (MAP) Pulse Ox O2 Delivery O2 Flow Rate FiO2 11/13/24 17:39 84 16 114/66 11/13/24 16:30 98.9 96 98.9 11/13/24 08:00 Room Air* 0 21 Physical exam: General: NAD, AAOX3 HEENT: PERRL, no scleral icterus, normal hearing, gums without lesions or bleeding, oropharynx clear without erythema or exudate. Neck: Supple without enlargement of the thyroid, or lymphadenopathy. Chest: Normal size and shape, no tenderness, lung vaughn clear to auscultation and percussion, nonlabored breathing. Heart: RRR, no murmur Abdomen: non-distended, no tenderness to palpation, +BS, no hepatosplenomegaly Extremities: no edema, no cyanosis Neurological: CN II-XII intact, sensation intact in all extremities, 5+ strength in all extremities, no asterixis Skin: No rashes, No jaundice Labs: Labs Test 11/13/24 08:13 11/13/24 06:54 11/12/24 17:48 11/12/24 17:46 Range/Units Lactic Acid Level 0.9 0.4-2.0 mmol/L White Blood Count 8.9 4.4-10.8 10^3/uL Red Blood Count 4.30 L 4.5-5.90 10^6/uL Hemoglobin 12.3 L 13.5-17.5 g/dL Hematocrit 36.5 L 41.0-53.0 % Mean Corpuscular Volume 84.9 80.0-100.0 fL Mean Corpuscular Hemoglobin 28.6 28.0-32.0 pg Mean Corpuscular Hemoglobin Concent 33.7 32.0-36.0 g/dL Red Cell Distribution Width 18.4 H 11.8-14.3 % Platelet Count 196 140-450 10^3/uL Mean Platelet Volume 8.2 6.9-10.8 fL Neutrophils (%) (Auto) 83.1 H 37.0-80.0 % Lymphocytes (%) (Auto) 10.1 10.0-50.0 % Monocytes (%) (Auto) 6.3 0.0-12.0 % Eosinophils (%) (Auto) 0.3 0.0-7.0 % Basophils (%) (Auto) 0.2 0.0-2.0 % Neutrophils # (Auto) 7.4 1.6-8.6 10 ^3/uL Lymphocytes # (Auto) 0.9 0.4-5.4 10 ^3/uL Monocytes # (Auto) 0.6 0-1.3 10 ^3/uL Eosinophils # (Auto) 0 0-0.8 10 ^3/uL Basophils # (Auto) 0 0-0.2 10 ^3/uL Nucleated Red Blood Cells 0.0 % Urine Color Light-yellow Yellow Urine Clarity Clear Clear Urine pH 6.5 5.0-9.0 Urine Specific [place] 1.019 1.001-1.035 Urine Protein Negative Negative Urine Ketones Negative Negative Urine Blood 1+ H Negative /uL Urine Nitrite Negative Negative Urine Bilirubin Negative Negative Urine Urobilinogen Normal Negative mg/dL Urine Leukocyte Esterase Negative Negative /uL Urine RBC 9 0 - 3 /hpf Urine Microscopic WBC < 1 0-3 /HPF Urine Squamous Epithelial Cells None seen <5 /hpf Urine Bacteria None seen None Seen /hpf Urine Mucus Few None Seen Urine Glucose Normal Normal mg/dL Sodium Level 138 136-145 mmol/L Potassium Level 3.7 3.5-5.1 mmol/L Chloride Level 102 98-107 mmol/L Carbon Dioxide Level 28 20-31 mmol/L Anion Gap 8 5-15 Blood Urea Nitrogen 11 9-23 mg/dL Creatinine 0.90 0.700-1.30 mg/dL Glomerular Filtration Rate Calc 105 >90 mL/min BUN/Creatinine Ratio 12.2 10.0-20.0 Serum Glucose 103 74-106 mg/dL Hemoglobin A1c 6.0 H <5.7 % A1C Calcium Level 9.9 8.7-10.4 mg/dL Total Bilirubin 0.8 0.2-1.0 mg/dL Aspartate Amino Transferase (AST) 23 13-40 U/L Alanine Aminotransferase (ALT) 46 H 7-40 U/L Alkaline Phosphatase 74 46-116 U/L Total Protein 7.2 5.7-8.2 g/dL Albumin 5.1 H 3.2-4.8 g/dL Imaging: Vital Signs Date Time Temp Pulse Resp B/P (MAP) Pulse Ox O2 Delivery O2 Flow Rate FiO2 11/13/24 17:39 84 16 114/66 11/13/24 17:09 89 18 129/75 11/13/24 16:30 98.9 89 19 129/75 (93) 96 98.9 11/13/24 12:30 98.0 80 20 125/78 (94) 97 98.0 11/13/24 11:56 82 16 126/66 11/13/24 11:26 80 18 125/78 11/13/24 08:45 98.4 86 20 115/76 (89) 97 98.4 11/13/24 08:00 Room Air* 0 21 11/13/24 01:00 98.8 91 20 120/80 (93) 98 98.8 11/12/24 22:59 98.7 98 12 141/83 (102) 98 98.7 11/12/24 22:55 95 Room Air* 0 21 11/12/24 20:19 98.4 85 17 140/90 (107) 96 98.4 Lab Test 11/13/24 08:13 11/13/24 06:54 Range/Units Lactic Acid Level 0.9 0.4-2.0 mmol/L White Blood Count 8.9 4.4-10.8 10^3/uL Red Blood Count 4.30 L 4.5-5.90 10^6/uL Hemoglobin 12.3 L 13.5-17.5 g/dL Hematocrit 36.5 L 41.0-53.0 % Mean Corpuscular Volume 84.9 80.0-100.0 fL Mean Corpuscular Hemoglobin 28.6 28.0-32.0 pg Mean Corpuscular Hemoglobin Concent 33.7 32.0-36.0 g/dL Red Cell Distribution Width 18.4 H 11.8-14.3 % Platelet Count 196 140-450 10^3/uL Mean Platelet Volume 8.2 6.9-10.8 fL Neutrophils (%) (Auto) 83.1 H 37.0-80.0 % Lymphocytes (%) (Auto) 10.1 10.0-50.0 % Monocytes (%) (Auto) 6.3 0.0-12.0 % Eosinophils (%) (Auto) 0.3 0.0-7.0 % Basophils (%) (Auto) 0.2 0.0-2.0 % Neutrophils # (Auto) 7.4 1.6-8.6 10 ^3/uL Lymphocytes # (Auto) 0.9 0.4-5.4 10 ^3/uL Monocytes # (Auto) 0.6 0-1.3 10 ^3/uL Eosinophils # (Auto) 0 0-0.8 10 ^3/uL Basophils # (Auto) 0 0-0.2 10 ^3/uL Nucleated Red Blood Cells 0.0 % Current Medications Medications (Trade) Dose Ordered Sig/Wyatt Route Start Time Stop Time Status Last Admin Ceftriaxone Sodium 50 ml @ 100 mls/hr ONCE ONCE IV 11/12/24 22:30 11/12/24 22:59 DC 11/12/24 23:24 Metronidazole 100 ml @ 100 mls/hr Q8HR IV 11/13/24 06:00 11/13/24 14:24 Metronidazole 100 ml @ 100 mls/hr ONCE ONCE IV 11/12/24 22:30 11/12/24 23:29 DC 11/13/24 00:37 Sodium Chloride 1,000 ml @ 125 mls/hr Q8H IV 11/12/24 22:30 11/13/24 10:13 Pantoprazole Sodium (Protonix) 40 mg DAILY IV 11/13/24 10:00 11/13/24 08:50 Morphine Sulfate 2 mg Q4HPRN PRN IV 11/13/24 11:00 11/13/24 17:09 CT scan IMPRESSION: 1. Acute complicated diverticulitis of the mid sigmoid colon with a small extraluminal tract /pocket of gas and fluid adjacent to the inflamed segment coursing to an adjacent small bowel loop. This could be a small abscess, though developing fistulous tract is a possibility 2. At least mild calcified coronary artery disease partially imaged. 3. Mild prostatomegaly. Assessment: 1. Acute diverticulitis versus perforation secondary to recent colonoscopy with polypectomy. Patient did have diverticulosis on the colonoscopy, and location of diverticulitis corresponds to polypectomy location. Patient appears to be improving since admission and being placed on antibiotics 2. Hyperlipidemia Recommendations: 1. Follow labs 2. Continue antibiotics 3. Agree with surgical recommendations 4. Keep the patient NPO, consider diet as tolerated 5. Pain control 6. We will follow Date of Service: Nov 13, 2024 Billing Provider: KONRAD MURRAY MD Common Visit Codes: [id number] INP/OBS CARE (HIGH) Consultation Codes: [id number] CONSULT <60MIN KONRAD MURRAY MD Nov 13, 2024 18:18
[2024-11-13 20:00] VITALS: RESP 20; O2SAT 94
[2024-11-13 21:00] VITALS: BP 131/77; PULSE 89; RESP 20; TEMP 98.1; O2SAT 94
[2024-11-14] VITALS (7 sets, daily range): BP systolic 121–138; BP diastolic 74–80; PULSE 75–91; RESP 16–20; TEMP 97.7–98.7; O2SAT 96–100
[2024-11-14] MEDS: cefTRIAXone 1GM/50ML D5W 50 ML IV SCH (00:14)
[2024-11-14 09:12] LABS: Basophils # (auto) 0 10 ^3/uL (0-0.2); Basophils % (auto) 0.1 % (0.0-2.0); Eosinophils # (auto) 0 10 ^3/uL (0-0.8); Eosinophils % (auto) 0.2 % (0.0-7.0); Hematocrit 38.9 % (41.0-53.0); Hemoglobin 12.9 g/dL (13.5-17.5); Lymphocytes # (auto) 0.8 10 ^3/uL (0.4-5.4); Lymphocytes % (auto) 10.3 % (10.0-50.0); Mean Corpuscular Hemoglobin 28.7 pg (28.0-32.0); Mean Corpuscular Hgb Conc. 33.2 g/dL (32.0-36.0); Mean Corpuscular Volume 86.2 fL (80.0-100.0); Monocytes # (auto) 0.6 10 ^3/uL (0-1.3); Monocytes % (auto) 6.9 % (0.0-12.0); Neutrophils # (auto) 6.6 10 ^3/uL (1.6-8.6); Neutrophils % (auto) 82.5 % (37.0-80.0); Platelet Count (auto) 185 10^3/uL (140-450); Red Blood Cells 4.52 10^6/uL (4.5-5.90); Red Cell Distribution Width 18.2 % (11.8-14.3)
[2024-11-14 09:34] LABS: Alanine Aminotransferase 24 U/L (7-40); Albumin 4.4 g/dL (3.2-4.8); Alkaline Phosphatase 71 U/L (46-116); Anion Gap 9 (5-15); BUN/Creatinine Ratio 10.3 (10.0-20.0); Bilirubin, Total 0.9 mg/dL (0.2-1.0); Calcium 9.4 mg/dL (8.7-10.4); Carbon Dioxide 25 mmol/L (20-31); Chloride 103 mmol/L (98-107); Glucose 101 mg/dL (74-106); Potassium 3.6 mmol/L (3.5-5.1); Sodium 137 mmol/L (136-145); Total Protein 6.7 g/dL (5.7-8.2)
[2024-11-14 09:41] LABS: Aspartate Aminotransferase 13 U/L (13-40); Blood Urea Nitrogen 9 mg/dL (9-23)
--- NOTE | 2024-11-14 13:14 | DVHPN2 ---
Progress Note - Dictate Date Seen: Nov 14, 2024 Medical Necessity Reason Pt with a Central, PICC or Fol: No Subjective E: no major events o/n. feels better. pain is improved. loose BM. vital signs Vital Sign Date Time Temp Pulse Resp B/P (MAP) Pulse Ox O2 Delivery O2 Flow Rate FiO2 11/14/24 12:59 97.7 79 16 127/75 (92) 97 97.7 11/14/24 08:00 Room Air* 0 21 Total Intake and Output 11/13/24 11/13/24 11/14/24 14:59 22:59 06:59 Intake Total 975 ml 400 ml 950 ml Balance 975 ml 400 ml 950 ml medications Current Medications Medications Dose Ordered Sig/Wyatt Route Start Time Stop Time Status Last Admin Dose Admin Ceftriaxone Sodium 50 ml @ 100 mls/hr DAILY@2300 IV 11/13/24 23:00 11/14/24 00:14 100 MLS/HR Metronidazole 100 ml @ 100 mls/hr Q8HR IV 11/13/24 06:00 11/14/24 05:17 100 MLS/HR Sodium Chloride 1,000 ml @ 125 mls/hr Q8H IV 11/12/24 22:30 11/14/24 12:44 125 MLS/HR Pantoprazole Sodium 40 mg DAILY IV 11/13/24 10:00 11/14/24 10:32 40 MG Morphine Sulfate 2 mg Q4HPRN PRN IV 11/13/24 11:00 11/14/24 10:38 2 MG objective GEN: NAD ABD: min LLQ TTP w/o G/R. laboratory and microbiology Laboratory Tests 11/14/24 08:26 Test 11/14/24 08:26 Range/Units Serum Glucose 101 74-106 mg/dL Assessment/Plan A: 1. improving. P: 1. clear liquid diet. Plan discussed with: Patient KASSANDRA BUNDY MD Nov 14, 2024 13:14
[2024-11-14] MEDS: SODIUM CHLORIDE 0.9% 1,000 ML IV SCH (13:15)
--- NOTE | 2024-11-14 15:59 | DVHPNRES ---
Progress Note Date Seen: Nov 14, 2024 Resident Creating Document: ALFONSO AGUILAR Medical Necessity Reason Pt with a Central, PICC or Fol: No Medical Necessity Reason Diverticulitis Subjective Review of Systems This is a 49-year-old male with past medical history of diverticulosis, prediabetes, dyslipidemia, who came in due to abdominal pain. According to the patient he underwent a colonoscopy on 11/10/2024 with the removal of a sigmoid polyp. On 11/12/2024 in the morning, he started experiencing a generalized abdominal pain, constant, sharp, cramping, 9/10 in intensity. Bending over relieves the pain slightly. Denies having similar symptoms in the past. Abdominal pain is accompanied with diarrhea and hematochezia. He denies chest pain, palpitations, nausea and vomiting. vitals temperature 98.7 pulse 98, respiratory 12 blood pressure 141/13. WBC10.7--> 8.9, hb: 13.60--> 12.3. CT abdomen pelvis showed acute complicated diverticulitis of the midsigmoid colon with a small extraluminal tract/pocket of gas and fluid adjacent to the inflamed segment coursing to an adjacent small bowel loop. This could be a small abscess, though developing fistulous track is a possibility. PN: 11/14/2024: Patient is seen and examined at the bedside today. He feeling a little better he denies any abdominal severe abdominal pain nausea vomiting. He did mentioned that he is feeling better less pain than yesterday. His vitals are completely normal and his lab work blood work today also did not reveal any abnormalities in parameters. Patient has also been followed up by the surgical team who are monitoring him closely and have given him the permission to go ahead required liquid diet today. Will watched patient overnight. Depending how things go, he may be discharged home tomorrow after his able to tolerate full liquid diet and advance to soft mechanical diet. Objective vital signs Vital Sign Date Time Temp Pulse Resp B/P (MAP) Pulse Ox O2 Delivery O2 Flow Rate FiO2 11/14/24 15:43 79 16 127/75 11/14/24 12:59 97.7 97 97.7 11/14/24 08:00 Room Air* 0 21 Total Intake and Output 11/13/24 11/13/24 11/14/24 15:00 23:00 07:00 Intake Total 975 ml 400 ml 950 ml Balance 975 ml 400 ml 950 ml medications Current Medications Medications Dose Ordered Sig/Wyatt Route Start Time Stop Time Status Last Admin Dose Admin Ceftriaxone Sodium 50 ml @ 100 mls/hr DAILY@2300 IV 11/13/24 23:00 11/14/24 00:14 100 MLS/HR Metronidazole 100 ml @ 100 mls/hr Q8HR IV 11/13/24 06:00 11/14/24 14:19 100 MLS/HR Pantoprazole Sodium 40 mg DAILY IV 11/13/24 10:00 11/14/24 10:32 40 MG Morphine Sulfate 2 mg Q4HPRN PRN IV 11/13/24 11:00 11/14/24 15:43 2 MG Sodium Chloride 1,000 ml @ 70 mls/hr [id number] IV 11/14/24 13:15 11/14/24 13:15 70 MLS/HR Examination General Appearance: Alert, Oriented X3, Cooperative, No acute distress, tolerating clear light diet HEENT: Atraumatic, PERRLA, EOMI, Mucous membrane moist/pink Respiratory: Clear to auscultation, Normal air movement Cardiovascular: Regular rate, Normal S1, Normal S2, No murmurs, no chest wall tenderness Abdominal: Tenderness in the lower quadrant, but L> R, bowel sounds present: improving Extremities: No clubbing, No cyanosis, No edema, Normal pulses, No tenderness/swelling Skin: No rashes, No breakdown, No significant lesion Neuro: Normal gait, Normal speech, Strength at 5/5 X4 ext, Normal tone, Sensation intact, Cranial nerves 3-12 NL, Reflexes 2+ Psych/Mental Status: Mental status NL, Mood NL laboratory and microbiology Laboratory Tests 11/14/24 08:26 Test 11/14/24 08:26 Range/Units Serum Glucose 101 74-106 mg/dL Labs and/or images reviewed: Labs reviewed by me, Image(s) reviewed by me Problem List/Assessment/Plan Problem List/Assessment/Plan ASSESSMENT Acute complicated Diverticulitis Questionable abscess vs colonic fistulous tract? Diverticulosis Obesity, BMI 34.1 Prediabetes, Hb A1c 6% Recent history of colonoscopy BPH (Mild prostatomegaly) Hemorrhoids, 4th degree S/p colonoscopy on 11/10/24 which showed polyp of the colon, diverticulosis of intestine without perforation or abscess without bleeding, 4th degree hemorrhoids History of GERD Plan Patient is clinically stable. Continue IV antibiotics: IV ceftriaxone, IV metronidazole IV NS at 125 cc/hour morphine 2 mg q4hr prn Protonix 40 mg daily Surgery following labs in the am Diet: Clear liquid diet Closed status: Full code Case discussed for 20 minutes Case and plan discussed and reviewed with Dr. Frankel Plan discussed with: Patient, Other (Nurse) Addendum Addendum Addendum I was physically present for the garcia portions of the service provided to patient by THE RESIDENT. I have reviewed the documentation, discussed the case with resident and agree with the resident's documentation except as noted. Also the patient's clinical case was discussed with the patient's nurse. This medical document was created using an electronic medical record system with computerized dictation system. Although this document has been carefully reviewed, there might still be some phonetic and typographical errors. These areas are purely typographical due to imperfections of the software programs, and do not reflect any compromise in the patient's medical care. Late signature. Date of Service: Nov 14, 2024 Billing Provider: SATISH FRANKEL MD Common Visit Codes: [id number] INP/OBS CARE(HIGH) Secondary Visit Codes: [id number] CARE PLAN 30 MINUTES (20 minutes) ALFONSO AGUILAR RESIDENT Nov 14, 2024 15:59 SATISH FRANKEL MD Nov 15, 2024 21:52
[2024-11-15] VITALS (7 sets, daily range): BP systolic 112–131; BP diastolic 72–85; PULSE 65–78; RESP 14–20; TEMP 97.8–98.7; O2SAT 97–99
[2024-11-15 07:57] LABS: Basophils # (auto) 0 10 ^3/uL (0-0.2); Basophils % (auto) 0.4 % (0.0-2.0); Eosinophils # (auto) 0.1 10 ^3/uL (0-0.8); Eosinophils % (auto) 1.8 % (0.0-7.0); Hemoglobin 12.6 g/dL (13.5-17.5); Lymphocytes % (auto) 16.3 % (10.0-50.0); Mean Corpuscular Hemoglobin 29.2 pg (28.0-32.0); Mean Corpuscular Volume 85.7 fL (80.0-100.0); Monocytes # (auto) 0.5 10 ^3/uL (0-1.3); Monocytes % (auto) 8.1 % (0.0-12.0); Neutrophils # (auto) 4.3 10 ^3/uL (1.6-8.6); Neutrophils % (auto) 73.4 % (37.0-80.0); Nucleated Red Blood Cells % 0.1 %; Platelet Count (auto) 176 10^3/uL (140-450); Red Blood Cells 4.31 10^6/uL (4.5-5.90); Red Cell Distribution Width 17.6 % (11.8-14.3); White Blood Cell 5.9 10^3/uL (4.4-10.8)
[2024-11-15 07:58] LABS: Calcium 9.3 mg/dL (8.7-10.4); Chloride 104 mmol/L (98-107); Potassium 3.8 mmol/L (3.5-5.1); Sodium 137 mmol/L (136-145)
[2024-11-15 07:59] LABS: Anion Gap 9 (5-15); Carbon Dioxide 24 mmol/L (20-31)
[2024-11-15 08:04] LABS: BUN/Creatinine Ratio 10.8 (10.0-20.0); Glucose 102 mg/dL (74-106)
[2024-11-15 08:08] LABS: Blood Urea Nitrogen 9 mg/dL (9-23)
--- NOTE | 2024-11-15 10:10 | PRN ---
Misceleneous Note Note Note November 15, 2024 Subjective: Patient is improving. He is passing gas and having bowel movements. He is tolerating a clear liquid diet. Pain is still there but improved Current Medications Medications (Trade) Dose Ordered Sig/Wyatt Route PRN Reason Start Time Stop Time Status Last Admin Sodium Chloride 1,000 ml @ 70 mls/hr [id number] IV 11/14/24 13:15 11/15/24 02:52 Current Medications Medications (Trade) Dose Ordered Sig/Wyatt Route PRN Reason Start Time Stop Time Status Last Admin Sodium Chloride 1,000 ml @ 70 mls/hr [id number] IV 11/14/24 13:15 11/15/24 02:52 Current Medications Medications (Trade) Dose Ordered Sig/Wyatt Route Start Time Stop Time Status Last Admin Dose Admin Ceftriaxone Sodium 50 ml @ 100 mls/hr DAILY@2300 IV 11/13/24 23:00 11/14/24 22:32 Metronidazole 100 ml @ 100 mls/hr Q8HR IV 11/13/24 06:00 11/15/24 05:28 Pantoprazole Sodium (Protonix) 40 mg DAILY IV 11/13/24 10:00 11/15/24 10:01 Morphine Sulfate 2 mg Q4HPRN PRN IV 11/13/24 11:00 11/15/24 06:46 Sodium Chloride 1,000 ml @ 70 mls/hr [id number] IV 11/14/24 13:15 11/15/24 02:52 Vital Signs Date Time Temp Pulse Resp B/P (MAP) Pulse Ox O2 Delivery O2 Flow Rate FiO2 11/15/24 07:16 80 18 125/82 11/15/24 05:00 98.6 97 98.6 11/14/24 20:00 Room Air* 0 21 Physical examination: Alert and oriented sitting up in bed Regular rate and rhythm Soft mildly tender mildly distended abdomen voluntary guarding No clubbing cyanosis or edema Labs Test 11/15/24 06:31 11/14/24 08:26 11/13/24 08:13 11/12/24 17:48 Range/Units White Blood Count 5.9 # 4.4-10.8 10^3/uL Red Blood Count 4.31 L 4.5-5.90 10^6/uL Hemoglobin 12.6 L 13.5-17.5 g/dL Hematocrit 37.0 L 41.0-53.0 % Mean Corpuscular Volume 85.7 80.0-100.0 fL Mean Corpuscular Hemoglobin 29.2 28.0-32.0 pg Mean Corpuscular Hemoglobin Concent 34.0 32.0-36.0 g/dL Red Cell Distribution Width 17.6 H 11.8-14.3 % Platelet Count 176 140-450 10^3/uL Mean Platelet Volume 8.7 6.9-10.8 fL Neutrophils (%) (Auto) 73.4 37.0-80.0 % Lymphocytes (%) (Auto) 16.3 10.0-50.0 % Monocytes (%) (Auto) 8.1 0.0-12.0 % Eosinophils (%) (Auto) 1.8 0.0-7.0 % Basophils (%) (Auto) 0.4 0.0-2.0 % Neutrophils # (Auto) 4.3 1.6-8.6 10 ^3/uL Lymphocytes # (Auto) 1.0 0.4-5.4 10 ^3/uL Monocytes # (Auto) 0.5 0-1.3 10 ^3/uL Eosinophils # (Auto) 0.1 0-0.8 10 ^3/uL Basophils # (Auto) 0 0-0.2 10 ^3/uL Nucleated Red Blood Cells 0.1 % Sodium Level 137 136-145 mmol/L Potassium Level 3.8 3.5-5.1 mmol/L Chloride Level 104 98-107 mmol/L Carbon Dioxide Level 24 20-31 mmol/L Anion Gap 9 5-15 Blood Urea Nitrogen 9 9-23 mg/dL Creatinine 0.83 0.700-1.30 mg/dL Glomerular Filtration Rate Calc 107 >90 mL/min BUN/Creatinine Ratio 10.8 10.0-20.0 Serum Glucose 102 74-106 mg/dL Calcium Level 9.3 8.7-10.4 mg/dL Total Bilirubin 0.9 0.2-1.0 mg/dL Aspartate Amino Transferase (AST) 13 13-40 U/L Alanine Aminotransferase (ALT) 24 7-40 U/L Alkaline Phosphatase 71 46-116 U/L Total Protein 6.7 5.7-8.2 g/dL Albumin 4.4 3.2-4.8 g/dL Lactic Acid Level 0.9 0.4-2.0 mmol/L Urine Color Light-yellow Yellow Urine Clarity Clear Clear Urine pH 6.5 5.0-9.0 Urine Specific [place] 1.019 1.001-1.035 Urine Protein Negative Negative Urine Ketones Negative Negative Urine Blood 1+ H Negative /uL Urine Nitrite Negative Negative Urine Bilirubin Negative Negative Urine Urobilinogen Normal Negative mg/dL Urine Leukocyte Esterase Negative Negative /uL Urine RBC 9 0 - 3 /hpf Urine Microscopic WBC < 1 0-3 /HPF Urine Squamous Epithelial Cells None seen <5 /hpf Urine Bacteria None seen None Seen /hpf Urine Mucus Few None Seen Urine Glucose Normal Normal mg/dL Test 11/12/24 17:46 Range/Units Hemoglobin A1c 6.0 H <5.7 % A1C Impression: Acute complicated diverticulitis versus iatrogenic perforation secondary to re cent colonoscopy with polypectomy Patient is improving Recommendations: 1. Follow labs 2. current antibiotics continue 3. Continue clear liquid and consider advancing tomorrow 4. Signing off, please reconsult. 5. Outpatient follow-up with KONRAD Marte MD Nov 15, 2024 10:10
--- NOTE | 2024-11-15 10:35 | DVHPN2 ---
Subjective Feeling better this morning; requesting to advance diet Reviewed: Care Plan, H&P, Labs, Medications, Previous Orders, Radiology, Other (Consultations) Changes from previous H/P or p: Changes Gastrointestinal: Hematochezia Objective Vitals Vital Signs Date Time Temp Pulse Resp B/P (MAP) Pulse Ox O2 Delivery O2 Flow Rate FiO2 11/15/24 09:00 97.8 78 16 131/85 (100) 98 97.8 11/15/24 08:00 Room Air* 0 21 Intake/Output Intake and Output 11/15/24 07:00 Intake Total 1970.0 ml Output Total 800 ml Balance 1170.0 ml Intake Oral 520 ml IV Total 1450.0 ml Output Urine Total 800 ml # Voids 7 # Bowel Movements 4 General Appearance: Alert, Oriented X3, Cooperative, No acute distress HEENT: Atraumatic Lungs: Clear to auscultation, Normal air movement Cardiovascular: Regular rate, Normal S1, Normal S2 Abdomen: Normal bowel sounds, Soft, Other (Very mild diffuse tenderness) Neuro: Normal speech, Cranial nerves 3-12 NL Psych/Mental Status: Mental status NL, Mood NL Medications Current Medications Medications Dose Ordered Sig/W[place]att Route Start Time Stop Time Status Last Admin Dose Admin Ceftriaxone Sodium 50 ml @ 100 mls/hr DAILY@2300 IV 11/13/24 23:00 11/14/24 22:32 100 MLS/HR Metronidazole 100 ml @ 100 mls/hr Q8HR IV 11/13/24 06:00 11/15/24 05:28 100 MLS/HR Pantoprazole Sodium 40 mg DAILY IV 11/13/24 10:00 11/15/24 10:01 40 MG Morphine Sulfate 2 mg Q4HPRN PRN IV 11/13/24 11:00 11/15/24 06:46 2 MG Sodium Chloride 1,000 ml @ 70 mls/hr [id number] IV 11/14/24 13:15 11/15/24 02:52 70 MLS/HR Laboratory Results Laboratory Tests 11/15/24 06:31 Chemistry Test 11/15/24 06:31 Calcium Level 9.3 mg/dL (8.7-10.4) Urinalysis Test 11/12/24 17:48 Urine Color Light-yellow (Yellow) Urine Clarity Clear (Clear) Urine pH 6.5 (5.0-9.0) Urine Specific [place] 1.019 (1.001-1.035) Urine Protein Negative (Negative) Urine Ketones Negative (Negative) Urine Blood 1+ /uL (Negative) H Urine Nitrite Negative (Negative) Urine Bilirubin Negative (Negative) Urine Urobilinogen Normal mg/dL (Negative) Urine Leukocyte Esterase Negative /uL (Negative) Urine RBC 9 /hpf (0 - 3) Urine Microscopic WBC < 1 /HPF (0-3) Urine Squamous Epithelial Cells None seen /hpf (<5) Urine Bacteria None seen /hpf (None Seen) Urine Mucus Few (None Seen) Urine Glucose Normal mg/dL (Normal) Labs and/or images reviewed: Labs reviewed by me, Image(s) reviewed by me Assessment/Plan Assessment/Plan Covering Dr. Brady: #Acute complicated diverticulitis versus iatrogenic perforation; secondary to recent colonoscopy on November 10, 2024 with polypectomy #Abdominal pain due to above #Obesity #Metabolic syndrome with a prediabetes (A1c of 6%) #BPH; no active issues #Internal hemorrhoids; no active issues To advance diet to soft mechanical Continue pain management as indicated Continue IV antibiotics Surgery and GI are following Perforation is likely as the patient continues to improve Counseled the patient on the importance of adopting healthy lifestyle with diet and exercise in order to lose weight Continue monitoring Late Entry. This medical document was created using an electronic medical record system with computerized dictation system. Although this document has been carefully reviewed, there might still be some phonetic and typographical errors. These areas are purely typographical due to imperfections of the software programs, and do not reflect any compromise in the patient's medical care. Plan discussed with: Patient, Spouse, Other (Nurse) Date of Service: Nov 15, 2024 Billing Provider: SATISH FRANKEL MD Common Visit Codes: 55552-[id number] INP/OBS CARE(HIGH) SATISH FRANKEL MD Nov 15, 2024 10:35
--- NOTE | 2024-11-15 14:07 | DVHPN2 ---
Progress Note - Dictate Date Seen: Nov 15, 2024 Medical Necessity Reason Pt with a Central, PICC or Fol: No Subjective E: no major events o/n. feels better. pain is improved. teagan soft diet. vital signs Vital Sign Date Time Temp Pulse Resp B/P (MAP) Pulse Ox O2 Delivery O2 Flow Rate FiO2 11/15/24 12:45 97.8 65 14 129/84 (99) 97 97.8 11/15/24 08:00 Room Air* 0 21 Total Intake and Output 11/14/24 11/14/24 11/15/24 15:00 23:00 07:00 Intake Total 750.0 ml 850 ml 370 ml Output Total 800 ml Balance 750.0 ml 850 ml -430 ml medications Current Medications Medications Dose Ordered Sig/W[place]att Route Start Time Stop Time Status Last Admin Dose Admin Ceftriaxone Sodium 50 ml @ 100 mls/hr DAILY@2300 IV 11/13/24 23:00 11/14/24 22:32 100 MLS/HR Metronidazole 100 ml @ 100 mls/hr Q8HR IV 11/13/24 06:00 11/15/24 05:28 100 MLS/HR Pantoprazole Sodium 40 mg DAILY IV 11/13/24 10:00 11/15/24 10:01 40 MG Morphine Sulfate 2 mg Q4HPRN PRN IV 11/13/24 11:00 11/15/24 06:46 2 MG Sodium Chloride 1,000 ml @ 70 mls/hr [id number] IV 11/14/24 13:15 11/15/24 02:52 70 MLS/HR objective GEN: NAD ABD: less TTP. laboratory and microbiology Laboratory Tests 11/15/24 06:31 Test 11/15/24 06:31 Range/Units Serum Glucose 102 74-106 mg/dL Assessment/Plan A: 1. improving. P: 1. surgery signing off. Plan discussed with: Patient KASSANDRA BUNDY MD Nov 15, 2024 14:07
[2024-11-15] MEDS: ACETAMINOPHEN 325 MG TAB PO ONE (22:05)
[2024-11-16 01:00] VITALS: BP 121/58; PULSE 60; RESP 17; TEMP 98.5; O2SAT 96
[2024-11-16 05:00] VITALS: BP 125/74; PULSE 67; RESP 17; TEMP 98.2; O2SAT 96
[2024-11-16 07:51] LABS: Basophils # (auto) 0 10 ^3/uL (0-0.2); Basophils % (auto) 0.6 % (0.0-2.0); Eosinophils # (auto) 0.1 10 ^3/uL (0-0.8); Eosinophils % (auto) 1.7 % (0.0-7.0); Hematocrit 41.1 % (41.0-53.0); Lymphocytes # (auto) 1.5 10 ^3/uL (0.4-5.4); Lymphocytes % (auto) 28.2 % (10.0-50.0); Mean Corpuscular Hemoglobin 28.9 pg (28.0-32.0); Mean Corpuscular Volume 85.1 fL (80.0-100.0); Monocytes # (auto) 0.5 10 ^3/uL (0-1.3); Monocytes % (auto) 9.1 % (0.0-12.0); Neutrophils # (auto) 3.3 10 ^3/uL (1.6-8.6); Neutrophils % (auto) 60.4 % (37.0-80.0); Nucleated Red Blood Cells % 0.1 %; Platelet Count (auto) 222 10^3/uL (140-450); Red Blood Cells 4.83 10^6/uL (4.5-5.90); Red Cell Distribution Width 17.6 % (11.8-14.3); White Blood Cell 5.4 10^3/uL (4.4-10.8)
[2024-11-16 07:53] LABS: Alanine Aminotransferase 22 U/L (7-40); Albumin 4.6 g/dL (3.2-4.8); Alkaline Phosphatase 71 U/L (46-116); Anion Gap 9 (5-15); Aspartate Aminotransferase 17 U/L (13-40); BUN/Creatinine Ratio 9.4 (10.0-20.0); Bilirubin, Total 0.5 mg/dL (0.2-1.0); Calcium 9.8 mg/dL (8.7-10.4); Carbon Dioxide 25 mmol/L (20-31); Chloride 104 mmol/L (98-107); Sodium 138 mmol/L (136-145)
[2024-11-16 08:07] LABS: Blood Urea Nitrogen 8 mg/dL (9-23); Glucose 118 mg/dL (74-106)
[2024-11-16 09:00] VITALS: BP 123/78; PULSE 60; RESP 18; TEMP 98; O2SAT 99
[2024-11-16] MEDS ORDERED: LEVO750T40 PO (12:53)
[2024-11-16] MEDS ORDERED: METR-344 PO (12:53)
[2024-11-16 13:00] VITALS: BP 126/73; PULSE 61; RESP 18; TEMP 98.3; O2SAT 99
--- NOTE | 2024-11-16 14:53 | DVHDSRES ---
Discharge Summary Date of Admission Resident Creating Document: ALFONSO AGUILAR RESIDENT Nov 12, 2024 at 22:29 Date of Discharge: Nov 16, 2024 Admitting Diagnosis ABDOMINAL PAIN Labs/Diagnostic Data: PATIENT: OPAL KWONT: [id number] UNIT: [id number] : 1975 LOC: ER ROOM / BED: / AGE / SEX: 49 / M ADM STATUS: REG ER SERVICE [id number] ORDERING PHYSICIAN: SEBAS BA PROCEDURE(s): ABPL - CT AB PEL WO CON-NO ORAL OR IV REASON: abd pain ORDER NUMBER(s): [id number], ACCESSION NUMBER(s): [id number] CLINICAL HISTORY: abd pain TECHNIQUE: CT of the abdomen and pelvis was performed without intravenous contrast. This exam was performed according to our departmental dose optimization program. Up-to-date CT equipment and radiation dose reduction techniques are utilized as appropriate. [[employer] Exposure Report] CTDI: 20.25 DLP: 1064.7 WID: COMPARISON: None FINDINGS: Lower Thorax: Normal-sized heart with trace pericardial fluid. At least mild coronary artery calcifications. Lung bases are clear. Liver and Biliary system: Unremarkable. Spleen: Unremarkable. Adrenal Glands and Kidneys: Unremarkable. Pancreas and Retroperitoneum: Unremarkable. Aorta and Major Vessels: Aortoiliac vessels are normal in caliber with mild calcified atherosclerotic plaque. Bowel, Mesentery and Peritoneal space: The small and large bowel loops are normal in caliber. There is a segment of pericolonic soft tissue stranding in the mid sigmoid colon. There is a tract of extraluminal gas and fluid from the anterior/ superior mid sigmoid colon, contiguous with an adjacent small bowel loop ( series 601, image 35 and series 2, image 66 ). Normal appendix. No generalized free intraperitoneal air Pelvis: Mild prostatomegaly. Urinary bladder is mildly distended. There is calcification of the bilateral vas deferens. No pelvic lymphadenopathy. Abdominal wall and Osseous Structures: Small fat containing left inguinal hernia. Mild multilevel lower thoracic and lumbar spondylosis. No destructive osseous lesion. IMPRESSION: 1. Acute complicated diverticulitis of the mid sigmoid colon with a small extraluminal tract /pocket of gas and fluid adjacent to the inflamed segment coursing to an adjacent small bowel loop. This could be a small abscess, though developing fistulous tract is a possibility 2. At least mild calcified coronary artery disease partially imaged. 3. Mild prostatomegaly. ATED BY: CHARLEE GRANDA MD DICTATED DATE/TIME: 11/12/24 2269 Laboratory Results Test 11/16/24 07:21 11/13/24 08:13 11/12/24 17:48 11/12/24 17:46 White Blood Count 5.4 10^3/uL (4.4-10.8) Red Blood Count 4.83 10^6/uL (4.5-5.90) Hemoglobin 14.0 g/dL (13.5-17.5) Hematocrit 41.1 % (41.0-53.0) Mean Corpuscular Volume 85.1 fL (80.0-100.0) Mean Corpuscular Hemoglobin 28.9 pg (28.0-32.0) Mean Corpuscular Hemoglobin Concent 34.0 g/dL (32.0-36.0) Red Cell Distribution Width 17.6 % (11.8-14.3) Platelet Count 222 10^3/uL (140-450) Mean Platelet Volume 8.8 fL (6.9-10.8) Neutrophils (%) (Auto) 60.4 % (37.0-80.0) Lymphocytes (%) (Auto) 28.2 % (10.0-50.0) Monocytes (%) (Auto) 9.1 % (0.0-12.0) Eosinophils (%) (Auto) 1.7 % (0.0-7.0) Basophils (%) (Auto) 0.6 % (0.0-2.0) Neutrophils # (Auto) 3.3 10 ^3/uL (1.6-8.6) Lymphocytes # (Auto) 1.5 10 ^3/uL (0.4-5.4) Monocytes # (Auto) 0.5 10 ^3/uL (0-1.3) Eosinophils # (Auto) 0.1 10 ^3/uL (0-0.8) Basophils # (Auto) 0 10 ^3/uL (0-0.2) Nucleated Red Blood Cells 0.1 % Sodium Level 138 mmol/L (136-145) Potassium Level 4.0 mmol/L (3.5-5.1) Chloride Level 104 mmol/L (98-107) Carbon Dioxide Level 25 mmol/L (20-31) Anion Gap 9 (5-15) Blood Urea Nitrogen 8 mg/dL (9-23) Creatinine 0.85 mg/dL (0.700-1.30) Glomerular Filtration Rate Calc 107 mL/min (>90) BUN/Creatinine Ratio 9.4 (10.0-20.0) Serum Glucose 118 mg/dL (74-106) Calcium Level 9.8 mg/dL (8.7-10.4) Total Bilirubin 0.5 mg/dL (0.2-1.0) Aspartate Amino Transferase (AST) 17 U/L (13-40) Alanine Aminotransferase (ALT) 22 U/L (7-40) Alkaline Phosphatase 71 U/L (46-116) Total Protein 7.0 g/dL (5.7-8.2) Albumin 4.6 g/dL (3.2-4.8) Lactic Acid Level 0.9 mmol/L (0.4-2.0) Urine Color Light-yellow (Yellow) Urine Clarity Clear (Clear) Urine pH 6.5 (5.0-9.0) Urine Specific [place] 1.019 (1.001-1.035) Urine Protein Negative (Negative) Urine Ketones Negative (Negative) Urine Blood 1+ /uL (Negative) Urine Nitrite Negative (Negative) Urine Bilirubin Negative (Negative) Urine Urobilinogen Normal mg/dL (Negative) Urine Leukocyte Esterase Negative /uL (Negative) Urine RBC 9 /hpf (0 - 3) Urine Microscopic WBC < 1 /HPF (0-3) Urine Squamous Epithelial Cells None seen /hpf (<5) Urine Bacteria None seen /hpf (None Seen) Urine Mucus Few (None Seen) Urine Glucose Normal mg/dL (Normal) Hemoglobin A1c 6.0 % A1C (<5.7) Other Laboratory Tests 11/16/24 07:21 Brief Hx & Hospital Course: Hospital course This 49-year-old male with past medical history of diverticulosis, prediabetes, dyslipidemia, came in due to abdominal pain. Patient had colonoscopy on 11/10/2024 with the removal of a sigmoid polyp, then started having left lower abdominal pain 2 days affter the proedure. He described the pain as generalized abdominal, constant, sharp, cramping, 9/10 in intensity that is relieved by bending forward. Abdominal pain is accompanied with diarrhea and hematochezia. He denies chest pain, palpitations, nausea and vomiting. vitals temperature 98.7 pulse 98, respiratory 12 blood pressure 141/13. WBC10.7--> 8.9, hb: 13.60--> 12.3. CT abdomen pelvis showed acute complicated diverticulitis of the midsigmoid colon with a small extraluminal tract/pocket of gas and fluid adjacent to the inflamed segment coursing to an adjacent small bowel loop. Which could be could be a small abscess, though developing fistulous track is a possibility. Patient was managed complicated diverticulitis with antibiotics and kept NPO. Surgeon was on board and agreed with management. On day 2 patient was started on clear fluid and gradually advanced to full diet. Overall, patient seen better today. Decreased abdominal pain, no nausa or hematochezia. Will discharge patient home with antibiotics for 14 days. Patient expressed complete understanding of the instructions and promised to compliant Examination General Appearance: Alert, Oriented X3, Cooperative, No acute distress, tolerating clear light diet HEENT: Atraumatic, PERRLA, EOMI, Mucous membrane moist/pink Respiratory: Clear to auscultation, Normal air movement Cardiovascular: Regular rate, Normal S1, Normal S2, No murmurs, no chest wall tenderness Abdominal: Mld Tenderness in the lower quadrant, but L> R, bowel sounds present: improving Extremities: No clubbing, No cyanosis, No edema, Normal pulses, No tenderness/swelling Skin: No rashes, No breakdown, No significant lesion Neuro: Normal gait, Normal speech, Strength at 5/5 X4 ext, Normal tone, Sensation intact, Cranial nerves 3-12 NL, Reflexes 2+ Psych/Mental Status: Mental status NL, Mood NL Diagnoses Acute complicated diverticulitis versus iatrogenic perforation; secondary to recent colonoscopy on November 10, 2024 with polypectomy Questionable abscess vs colonic fistulous tract? Diverticulosis Obesity, BMI 34.1 Prediabetes, Hb A1c 6% Recent history of colonoscopy BPH (Mild prostatomegaly) Hemorrhoids, 4th degree S/p colonoscopy on 11/10/24 which showed polyp of the colon, diverticulosis of intestine without perforation or abscess without bleeding, 4th degree hemorrhoids History of GERD Discharge plan Home with levofloxacin 750 daily for 14 days Metronidazole 500 TID for 14 days Follow up with the GI group Follow up at the discharge Clinic within a week Patient advised to report to the ED should he not see any improvement in his health Discharge plan discussed with Dr. Gabriel Consults/Reason for consult Abdominal pain in the post colonoscopy patient Condition at Discharge: Good Final Diagnosis/Problems List Acute complicated diverticulitis versus iatrogenic perforation; secondary to recent colonoscopy on November 10, 2024 with polypectomy Abdominal pain due to above Obesity. BMI: 33.61 Metabolic syndrome with a prediabetes (A1c of 6%) BPH; no active issues Internal hemorrhoids; no active issues Discharge Disposition: Home Discharge Instruct/Medications Diet: See Comment Diet comment: soft mechanical diet for a week Activity: No Restrictions, As Tolerated Follow Up/Referral: 7 days Medications: levofloxacin 750 daily for 14 day Metronidazole 500 tid for 14 days Discharge Statement: "Patient was advised to return to the ER or call 911 if any headaches, dizziness, shortness of breath, chest pain, abdominal pain, bleeding, fevers, or worsening of medical condition. Patient was counseled about treatment plan, medications, possible side effects, patientverbalized understanding. All questions were answered to the best of my ability. This discharge took greater then 30 minutes in planning, reviewing documentation, counseling the patient, and discussing with other team members." ASSESSMENT ASSESSMENT Assessment Acute complicated diverticulitis versus iatrogenic perforation; secondary to recent colonoscopy on November 10, 2024 with polypectomy Abdominal pain due to above Obesity Metabolic syndrome with a prediabetes (A1c of 6%) BPH; no active issues Internal hemorrhoids; no active issues Date of Service: Nov 16, 2024 Billing Provider: JEFFREY GABRIEL MD Common Visit Codes: 26901-BLG/OBS DISCH DAY >30min ALFONSO AGUILAR RESIDENT Nov 16, 2024 14:53 JEFFREY GABRIEL MD Nov 17, 2024 11:14
[2024-11-16 15:33] VITALS: BP 126/73; PULSE 61; RESP 18; TEMP 98.3; O2SAT 99
[2024-11-16 17:00] VITALS: BP 138/85; PULSE 60; RESP 16; TEMP 98.2; O2SAT 98
== END 2024-11-16 17:10 | disposition home or self-care (01) | DRG 392 ==
LOC: ER 16:16 → OVERFLOW 22:29 → WEST WING 11-13 01:02
PROVIDERS: ADMIT Internal Medicine; ATTEND Internal Medicine
DX: K57.20 Diverticulitis of large intestine with perforation and abscess without bleeding (principal); N40.0 Benign prostatic hyperplasia without lower urinary tract symptoms; E66.9 Obesity, unspecified; K64.8 Other hemorrhoids; E88.810 Metabolic syndrome; K21.9 Gastro-esophageal reflux disease without esophagitis; E78.00 Pure hypercholesterolemia, unspecified; Z68.34 Body mass index [BMI] 34.0-34.9, adult
CPT/HCPCS: 36415; 74176; 80048; 80053; 81001; 83036; 83605; 85025; G0378; J0131; J1885; J2470; J2543; J3490